=== PATIENT | male | born 1930 | race Caucasian/White ===

== ENCOUNTER 2017-06-10 08:52 | Emergency (ER) | payer OTHER ==
[~2017-06-10] VITALS: Ht 175.3 cm; Wt 68.2 kg
[2017-06-10] MEDS ORDERED: SOD CHLORIDE 0.9% 1,000 ML IV STA (09:10)
[2017-06-10 09:20] VITALS: Ht 175.3 cm; Wt 68.2 kg
[2017-06-10 10:32] LABS: CALCIUM 8.7 mg/dl (8.4-10.2); CREATININE 1.29 mg/dl (0.61-1.24); POTASSIUM 3.9 mmol/L (3.5-5.1)
--- NOTE | 2017-06-10 10:32 | RADRPT ---
PROCEDURE: XR Chest. CLINICAL INDICATION: Syncope TECHNIQUE: Single portable view of the chest was obtained COMPARISON: No priors for comparison FINDINGS: The trachea is midline. The cardiac silhouette and pulmonary vascularity are within normal limits. M ultiple bilateral upper lobe calcified granulomas are noted. The lungs are otherwise clear. The cost ophrenic angles are sharp. IMPRESSION: 1. Multiple bilateral upper lobe calcified granulomas. Correlate with history of prior granulomatous disease. 2. No evidence of acute cardiopulmonary disease. RPTAT: AARR Physician Amarilys Date Time Electronically viewed and signed by Physician Amarilys on 06/10/2017 10:32 JL/
--- NOTE | 2017-06-10 10:35 | RADRPT ---
PROCEDURE: XR PELVIS. CLINICAL INDICATION: Status post fall. TECHNIQUE: 2 views of the pelvis or performed. COMPARISON: None. FINDINGS: There is no evidence of acute fractures of the visualized pelvis. Iliac wings are intact. SI joints are symmetric. The pubic rami as are within normal limits. Both hips demonstrates osteoarthritic rosalinda nges. No gross abnormal osseous lesions. Soft tissues are unremarkable. There are degenerative campos es of the lumbosacral spine. IMPRESSION: 1. No evidence of acute fractures of visualized pelvis. 2. 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 RPTAT: AARR Physician Amarilys Date Time Electronically viewed and signed by Physician Amarilys on 06/10/2017 10:34 JL/
--- NOTE | 2017-06-10 10:36 | RADRPT ---
PROCEDURE: LEFT KNEE X-RAY CLINICAL INDICATION: Generalized pain TECHNIQUE: 3 views of the left knee were obtained. COMPARISON: None FINDINGS: There is no evidence of acute fracture or dislocation of the left knee. Bony mineralization and alig nment are unremarkable. Degenerate changes of the left knee is noted, with minimal joint effusion. T here is chondrocalcinosis and atherosclerotic calcifications. IMPRESSION: 1. Osteoarthritis of the left knee, without evidence of acute fracture or dislocation. 2. Mild chondrocalcinosis and minimal suprapatellar effusion. 3. 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 RPTAT: AARR Physician Amarilys Date Time Electronically viewed and signed by Physician Amarilys on 06/10/2017 10:35 NIGEL/
[2017-06-10 10:43] LABS: TROPONIN-I 0.077 ng/ml (0.00-0.12)
[2017-06-10 10:59] LABS: BASOPHILS % 0.3 % (0.0-2.0); EOSINOPHILS % 0.1 % (0.0-7.0); HEMATOCRIT 32.2 % (42.0-52.0); HEMOGLOBIN 10.5 g/dl (14.0-18.0); LYMPHOCYTES # 0.7 10^3/ul (0.8-2.9); LYMPHOCYTES % 4.9 % (15.0-51.0); MEAN CORPUSCULAR HGB CONC 32.6 g/dl (32.0-37.0); MEAN CORPUSCULAR VOLUME 98.2 fl (82.0-101.0); MEAN PLATELET VOLUME 11.6 fl (7.4-10.4); MONOCYTE # 1.3 10^3/ul (0.3-0.9); MONOCYTES % 8.8 % (0.0-11.0); NEUTROPHIL # 12.7 10^3/ul (1.6-7.5); NEUTROPHILS % 85.4 % (39.0-77.0); PLATELET COUNT 122 10^3/UL (140-415); POSITIVE DIFF @See below; RED BLOOD COUNT 3.28 10^6/ul (4.70-6.10); RED CELL DISTRIBUTION WIDTH 14.4 % (11.5-14.5); WHITE BLOOD COUNT 14.8 10^3/ul (4.8-10.8)
--- NOTE | 2017-06-10 11:01 | RADRPT ---
PROCEDURE: CT Brain without contrast. CLINICAL INDICATION: Syncope. TECHNIQUE: A CT of the brain was performed on a GE 64-slice CT scanner utilizing axial imaging fro m the skull base through the vertex without intravenous contrast. Multiplanar reformatted images wer e made. The CTDIvol is 45.01 mGy and the DLP is 720.93 mGycm. One or more of the following dose reduction techniques were used: - Automated exposure control. - Adjustment of the mA and/or kV according to patient size. - Use of iterative reconstruction technique. COMPARISON: None. FINDINGS: There is no intracranial hemorrhage, mass effect, or midline shift. No extra-axial fluid collection is seen. Mild generalized parenchymal volume loss is present. The ventricles are proportionate in size and demonstrate no evidence of hydrocephalus. Mild decreased attenuation is seen in the perive ntricular and deep white matter, compatible with microvascular ischemic disease. The go white radha er differentiation is well preserved with no acute infarct detected. Calcifications of the bilateral internal carotid siphons and distal left vertebral artery are present. The osseous structures and visualized paranasal sinuses are unremarkable. IMPRESSION: 1. No evidence of acute intracranial pathology. 2. Mild diffuse right volume loss . 3. 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 RPTAT: HRSR Has been Physician Elizabeth Date Time Electronically viewed and signed by Physician Elizabeth on 06/10/2017 11:01 RR/
[2017-06-10 11:03] LABS: INR 1.1; PROTIME 14.2 Sec (12.2-14.2); PT RATIO 1.1
[2017-06-10 11:04] LABS: PARTIAL THROMBOPLASTIN TIME 33.3 Sec (25.0-35.0)
[2017-06-10] MEDS ORDERED: ATEN-51 PO (11:06)
[2017-06-10] MEDS ORDERED: HYDR-906 PO (11:06)
[2017-06-10] MEDS ORDERED: ISOS30TA5 PO (11:07)
[2017-06-10] MEDS ORDERED: TAMS0.4C2 PO (11:08)
[2017-06-10] MEDS ORDERED: LISI2.5T59 PO (11:08)
[2017-06-10] MEDS ORDERED: ATOR40TA68 PO (11:08)
[2017-06-10] MEDS ORDERED: ASPI-664 PO (11:09)
[2017-06-10] MEDS ORDERED: DOCU-159 PO (11:09)
[2017-06-10] MEDS ORDERED: FAMO40TA52 PO (11:09)
[2017-06-10] MEDS ORDERED: ACETAMINOPHEN 325 MG TAB PO ONE (12:00)
--- NOTE | 2017-06-10 12:25 | ERD ---
ER Documentation Chief Complaint Chief Complaint PT BIB RA 881 for c/o weakness and dizziness after GLF yesterday. NO KO. HPI This is an 87-year-old male who presents via EMS for generalized weakness. The patient states that he felt generally weak and fell to the ground and getting his head yesterday without loss of consciousness. He denies taking anticoagulants. He does describe bruising to the left knee with mild pain. However, the patient was unable to get up from the ground given generalized weakness. He stayed on the floor of his bathroom the entire night. The patient does live alone. EMS reports that his home is well kept. The patient states that he is usually able to ambulate with a walker and care for activities of daily living however not currently. Denies any neck pain chest pain or shortness of breath. ROS All systems reviewed and are negative except as per history of present illness. Medications Home Meds Reported Medications Famotidine* (Famotidine*) 40 Mg Tablet, 40 MG PO HS, #30 TAB 06/10/17 Aspirin* (Aspirin* EC) 81 Mg Tablet.dr, 81 MG PO DAILY, TAB 06/10/17 Docusate Sodium* (Docusate Sodium*) 100 Mg Capsule, 100 MG PO BID, #60 CAP 06/10/17 Atorvastatin* (Atorvastatin*) 40 Mg Tablet, 40 MG PO QHS, #30 TAB 06/10/17 Lisinopril* (Lisinopril*) 2.5 Mg Tablet, 2.5 MG PO DAILY, #30 TAB 06/10/17 Tamsulosin Hcl* (Tamsulosin Hcl*) 0.4 Mg Cap.er.24h, 0.4 MG PO HS, CAP 06/10/17 Isosorbide Mononitrate* (Isosorbide Mononitrate*) 30 Mg Tab.er.24h, 30 MG PO DAILY, TAB 06/10/17 Atenolol* (Atenolol*) 25 Mg Tablet, 25 MG PO DAILY, #30 TAB 06/10/17 Hydrocodone/Acetaminophen ([place] 5-325 Tablet) 1 Each Tablet, 1 EACH PO Q6 Y for SEVERE PAIN LEVEL 7-10, TAB 06/10/17 Allergies Allergies: Coded Allergies: No Known Allergy (Unverified , 06/10/17) PMhx/Soc History of Surgery: No Anesthesia Reaction: No Hx Neurological Disorder: No Hx Respiratory Disorders: No Hx Cardiac Disorders: Yes (HTN) Hx Psychiatric Problems: No Hx Miscellaneous Medical Probl: No Hx Alcohol Use: No Hx Substance Use: No Hx Tobacco Use: No Smoking Status: Never smoker FmHx Family History: No diabetes Physical Exam Vitals Vital Signs Date Time Temp Pulse Resp B/P Pulse Ox O2 Delivery O2 Flow Rate FiO2 06/10/17 11:39 88 18 160/103 98 Room Air 06/10/17 09:20 98.4 79 18 121/55 98 Physical Exam Airway is intact Bilateral breath sounds Strong distal pulses No obvious deficits General: Well developed, well nourished, no acute distress Head: Normocephalic, atraumatic Eyes: Pupils equally reactive, EOM intact ENT: Dry mucous membranes Neck: Supple, no lymphadenopathy, No midline tenderness, deformities, step-offs to the cervical spine, full active and passive range of motion without midline pain. Respiratory: Lungs clear bilaterally, no distress, no chest wall tenderness, no crepitus Cardiovascular: RRR, no murmurs, rubs, or gallops Abdominal: Soft, non-tender, non-distended, no peritoneal signs, pelvis is stable : Deferred MSK: No edema, no unilateral swelling, 5/5 strength, no midline tenderness deformities or step-offs to the thoracolumbar spine. There is a mild contusion of the lateral aspect of the left knee but full active and passive range of motion at the knee. The patient is full active and passive range of motion of bilateral hips with normal internal and external rotation. Stable pelvis. Neurologic: Alert and oriented, moving all extremities, normal speech, no focal weakness, no cerebellar signs Skin: No ecchymoses or bruising to the chest or abdomen Psych: Normal mood Result Diagram: 06/10/1745 06/10/1745 Results 24 hrs Laboratory Tests Test 06/10/17 09:45 06/10/17 11:30 White Blood Count 14.810^3/ul Red Blood Count 3.2810^6/ul Hemoglobin 10.5g/dl Hematocrit 32.2% Mean Corpuscular Volume 98.2fl Mean Corpuscular Hemoglobin 32.0pg Mean Corpuscular Hemoglobin Concent 32.6g/dl Red Cell Distribution Width 14.4% Platelet Count 79706^3/UL Mean Platelet Volume 11.6fl Neutrophils % 85.4% Lymphocytes % 4.9% Monocytes % 8.8% Eosinophils % 0.1% Basophils % 0.3% Nucleated Red Blood Cells % 0.0/100WBC Neutrophils # 12.710^3/ul Lymphocytes # 0.710^3/ul Monocytes # 1.310^3/ul Eosinophils # 0.010^3/ul Basophils # 0.010^3/ul Nucleated Red Blood Cells # 0.010^3/ul Prothrombin Time 14.2Sec Prothrombin Time Ratio 1.1 INR International Normalized Ratio 1.10 Activated Partial Thromboplast Time 33.3Sec Sodium Level 137mmol/L Potassium Level 3.9mmol/L Chloride Level 99mmol/L Carbon Dioxide Level 27mmol/L Anion Gap 15 Blood Urea Nitrogen 26mg/dl Creatinine 1.29mg/dl Glucose Level 115mg/dl Calcium Level 8.7mg/dl Creatine Kinase 237IU/L Troponin I 0.077ng/ml Urine Color YELLOW Urine Clarity SLIGHTLY CLOUDY Urine pH 5.0 Urine Specific [place] 1.008 Urine Ketones NEGATIVEmg/dL Urine Nitrite NEGATIVEmg/dL Urine Bilirubin NEGATIVEmg/dL Urine Urobilinogen NEGATIVEmg/dL Urine Leukocyte Esterase 2+Ghada/ul Urine Microscopic RBC 3/HPF Urine Microscopic WBC 68/HPF Urine Bacteria MANY/HPF Urine Mucus FEW/HPF Urine Hemoglobin 2+mg/dL Urine Glucose NEGATIVEmg/dL Urine Total Protein 1+mg/dl Current Medications Medications (Trade) Dose Ordered Sig/Juan Route PRN Reason Start Time Stop Time Status Last Admin Dose Admin Sodium Chloride (NS) 1,000 ml @ 1,000 mls/hr Q1H STAT IV 06/10/17 09:10 06/10/17 10:11 DC 06/10/17 09:50 Acetaminophen 650 mg 650 mg ONCE ONCE PO 06/10/17 12:00 06/10/17 12:01 DC 06/10/17 11:45 Ceftriaxone Sodium (Rocephin) 50 ml @ 100 mls/hr ONCE ONCE IVPB 06/10/17 13:00 06/10/17 13:29 06/10/17 13:10 Procedures/MDM EKG, MONITORS, & DIAGNOSTIC IMAGING: EKG: I reviewed and interpreted a 12-lead EKG. Rhythm: Normal sinus rhythm Ectopy: None Intervals: No abnormalities ST segments: No elevations or depressions T waves: No contiguous inversions Chest x-ray: I reviewed and interpreted a 1 view of the chest Mediastinum: No enlargement Cardiac silhouette: No cardiomegaly Airspace: Clear lung eli bilaterally without evidence of pneumothorax Bones: No evidence of fracture X-ray pelvis: I reviewed and interpreted 1 view of the pelvis, there is no evidence of acute fracture, dislocation, subluxation, or foreign body. Interpretation: No acute process. CT brain: No evidence of acute intracranial process per radiologist X-ray left knee: I reviewed and interpreted multiple views of the x-ray Bones: No evidence of acute fracture dislocation or subluxation Soft tissue: No evidence of foreign body LAB INTERPRETATION: Nonspecific leukocytosis, mild renal insufficiency with unknown baseline, negative troponin. Normal CPK MEDICAL DECISION MAKING: The patient presents with a near syncopal episode and fall. The patient was clinically cleared from his cervical spine. However he did state that he hit his head. CT brain was ordered and is negative. A broad differential exists but the patient is generally weak. From a trauma standpoint the patient has mild bruising to the left knee but no evidence of close fracture of the knee hip or pelvis. He has no evidence of blunt chest or abdominal injury. Unclear etiology of the patient's fall versus syncope but the patient has a normal EKG and a negative troponin. Patient did not describe any prodrome of chest pain or shortness of breath to suggest dissection or pulmonary embolism. Generalized weakness could represent urinary tract infection the urinalysis is pending. The patient lives alone and is unable to fully ambulate this time therefore hospitalization is necessary. ER COURSE: Patient was given IV fluids and has stabilized. He is resting comfortably and protecting his airway. He has a [employer] insurance and is stable for transfer. I was able to speak to [facility] physician Dr. Sherwood, authorization number is [id number]. The patient is stable for transfer and will be admitted for generalized weakness. Urinalysis is pending and to be followed at this point. 1:11 PM: Patient has evidence of urinary tract infection and was given ceftriaxone. Urine culture was added. The patient was describing left knee pain. On repeat examination he has full active and passive range of motion. He has no tenderness of the hip with normal internal and external rotation, no shortening. The patient may require further imaging such as CT of the hip and knee however given that the patient is being transferred to [facility] this can be completed at that facility. No evidence of acute or occult fracture at this time. Pain controlled with Tylenol. I kept the patient and/or family informed of laboratory and diagnostic imaging results throughout the emergency room course. DISPOSITION PLAN: Transfer to a [facility] CONSULTATION: Accepting care team and consultations: I discussed the current laboratory data, diagnostic imaging and emergency care provided. Admitting team: Dr. Sherwood Admitting team indication: Insurance directed Departure Diagnosis: Primary Impression: Near syncope Additional Impressions: Closed head injury Encounter type: initial encounter Qualified Code: S09.90XA - Closed head injury, initial encounter Generalized weakness Acute renal insufficiency Contusion of knee, left Encounter type: initial encounter Qualified Code: S80.02XA - Contusion of left knee, initial encounter Leukocytosis Leukocytosis type: unspecified Qualified Code: D72.829 - Leukocytosis, unspecified type Urinary tract infection Urinary tract infection type: acute cystitis Hematuria presence: without hematuria Qualified Code: N30.00 - Acute cystitis without hematuria Condition: Stable TAYLOR REMY MD Jun 10, 2017 12:25
[2017-06-10 12:38] LABS: ADD UMIC YES; UR ASCORBIC ACID NEGATIVE (NEGATIVE); UR BACTERIA MANY /HPF (NONE SEEN); UR BILIRUBIN (Dip) NEGATIVE (NEGATIVE); UR BLOOD (Dip) 2+ mg/dL (NEGATIVE); UR CLARITY SLIGHTLY CLOUDY (CLEAR); UR COLOR YELLOW (YELLOW); UR GLUCOSE (Dip) NEGATIVE (NEGATIVE); UR KETONES (Dip) NEGATIVE (NEGATIVE); UR LEUKOCYTE ESTERASE (Dip) 2+ Leu/ul (NEGATIVE); UR MUCUS FEW /HPF (NONE SEEN); UR NITRITE (Dip) NEGATIVE (NEGATIVE); UR RBC 3 /HPF (0-5); UR SPECIFIC GRAVITY (Dip) 1.008 (1.003-1.030); UR TOTAL PROTEIN (Dip) 1+ mg/dl (NEGATIVE); UR UROBILINOGEN (Dip) NEGATIVE (NEGATIVE)
[2017-06-10] MEDS ORDERED: CEFTRIAXONE 1 GM/50 ML (PMX) 50 ML IVPB ONE (13:00)
[2017-06-10 13:15] VITALS: PULSE 88; RESP 18
[2017-06-10 13:42] VITALS: BP 135/52
== END 2017-06-10 14:21 | disposition short-term general hospital (02) ==
LOC: E/R 08:52 → MERGE 08:52 → E/R 14:21
DX: R55 Syncope and collapse (principal); S09.90XA Unspecified injury of head, initial encounter; S80.02XA Contusion of left knee, initial encounter; D72.829 Elevated white blood cell count, unspecified; N30.00 Acute cystitis without hematuria; N28.9 Disorder of kidney and ureter, unspecified; I10 Essential (primary) hypertension; W18.39XA Other fall on same level, initial encounter; Y92.9 Unspecified place or not applicable; Z79.82 Long term (current) use of aspirin
CPT/HCPCS: 36415; 70450; 71010; 72170; 73562; 80048; 81001; 82550; 84484; 85025; 85610; 85730; 87086; 96374; 99285; J0696; J7030; 93005